=== PATIENT | female | born 1990 | race Caucasian/White ===

== ENCOUNTER 2022-08-13 16:43 | Emergency (ER) | payer BC, SELFPAY ==
[2022-08-13 17:02] VITALS: BP 140/93; PULSE 84; RESP 18; TEMP 36.4; O2SAT 100; BMI 49.8
--- NOTE | 2022-08-13 18:34 | CRLHL7_ITS ---
For Patients: As a result of the Century Cures Act, medical imaging exams and procedure reports are released immediately into your electronic medical record. You may view this report before your referring provider. If you have questions, please contact your health care provider. INDICATION: Headache TECHNIQUE: CT head without contrast. COMPARISON: None FINDINGS: CSF spaces: Within normal limits for age. Brain parenchyma: The rivera-white differentiation is normal. No sign of mass, hemorrhage, or midline shift. Skull base and calvarium: The visualized paranasal sinuses and mastoid air cells demonstrate no acute or significant findings. The visualized orbits are grossly unremarkable. No skull fractures. IMPRESSION: Unremarkable noncontrast head CT. Dictated by Floyd Phillips MD @ 08/13/2022 6:51:17 PM Please note that all CT scans at this facility use dose modulation, iterative reconstruction, and/or weight-based dosing when appropriate to reduce radiation dose to as low as reasonably achievable. Dictated by: Floyd Phillips MD @ 08/13/2022 18:51:25 (Electronically Signed)
[2022-08-13] MEDS: KETOROLAC 30 MG/ML inj IVP (19:07)
[2022-08-13] MEDS: 0.9 % SODIUM CHLORIDE 1000 ml 1,000 ML IV (19:07)
[2022-08-13] MEDS: diphenhydrAMINE 50 MG/ML inj 25 MG IVP (19:09)
[2022-08-13] MEDS: METOCLOPRAMIDE HCL 10 MG in 0.9 % SODIUM CHLORIDE 100 ml 100 ML 306 MG IVPB (19:11)
--- NOTE | 2022-08-13 20:06 | ED_ITS ---
HPI - Headache General Date Seen: 08/13/22 Chief Complaint: Headache/Migraine Stated Complaint: HEADACHE & BACK PAIN Time Seen by Provider: 08/13/22 18:20 Source: patient and family Mode of arrival: ambulatory Limitations: no limitations History of Present Illness HPI Narrative: Patient is a very nice 32-year-old female who has had a headache now for the last 3-4 days, she describes initially over the right frontal region, behind her eye but now has become more bitemporal. No fevers or chills, she describes some pain coming up from her neck into head . He is not photophobic, she is able to move all extremities independently well denies any numbness tingling weakness no history of falls or injury fevers chills or sweats, cold-like symptoms associated with this she denies any stuffy nose. She has felt slightly nauseous but has not vomited, no abdominal pain no chest pain, no shortness of breath. No rashes. Have a history of headaches but this feels a little MD elicited complaint: headache and migraine Onset (ago): day(s) Onset description: gradually Location: frontal, temporal and occipital Severity: moderate Quality & Timing: aching and throbbing Exacerbating factors: none and movement of head/neck Relieving factors: nothing Context: occurred at rest Associated symptoms: nausea Treatments prior to arrival: none, acetaminophen and ibuprofen Related Data Allergies Allergy/AdvReac Type Severity Reaction Status Date / Time Penicillins Allergy Severe hives Verified 08/13/22 17:09 Cephalosporins AdvReac Intermediate Verified 08/13/22 17:09 Review of Systems Status of ROS: Reports: 10 or more systems reviewed and unremarkable except as noted in History and below PFSH PFS Social History Smoking Status: Never smoker Do you use any of these nicotine containing products: None Second hand tobacco smoke exposure: No How often do you have a drink containing alcohol: monthly or less How many standard drinks containing alcohol do you have on a typical day: 1 or 2 How often do you have six or more drinks on one occasion: Never AUDIT-C Alcohol total score: 1 Non-prescribed substance use: marijuana (any form) Non-prescribed substance use details: rx medical service: No Exam Narrative: Exam Narrative: Patient is a very nice 32-year-old female, with bright green hair. Pupils are equal round reactive to light there is no scleral icterus redness TMs are normal oropharynx normal there is no adenopathy anterior posterior chains are neck is supple full range of motion of flexion extension lateral flexion cervical rotation are noted. She has some mild tenderness along her cervical strap muscles, and the paracervical muscles, and into her traps. There is no meningismus. Mouth opening is normal, TMs are normal, fundi appear normal, cranial nerves 3-12 are normal, chest is clear heart sounds are normal, abdomen is soft and obese there is no guarding no past splenomegaly, she was all extremities independently well with symmetrical power in upper lower extremities, no numbness and tingling, and bilaterally normal, movements fingers nose testing is normal, no cerebellar signs with normal Romberg. Her gait is assessed and normal Const: Vital Signs, click to edit/add: Vital Signs - 24 hr 08/13/22 17:02 08/13/22 20:20 Temperature 97.5 F L Pulse Rate [Pulse Oximeter] 84 79 Respiratory Rate 18 Blood Pressure [Ri ght Forearm] 140/93 H 133/84 Pulse Oximetry 100 Oxygen Delivery Me thod Room Air Documenting provider has reviewed patient's vital signs: yes Course Course Hospital Course: I reviewed with the patient that her head CT was normal, and we will give her some medications the medications did help decrease her pain. We will discharge her home at this point. She was very comfortable this we went over signs and symptoms of worsening. Vital Signs Vital signs: Initial Vital Signs Temperature 97.5 F L 08/13/22 17:02 Temperature Source Temporal Artery Scan 08/13/22 17:02 Pulse Rate 84 08/13/22 17:02 Pulse Rhythm 08/13/22 17:02 Respiratory Rate 18 08/13/22 17:02 Blood Pressure 140/93 H 08/13/22 17:02 Blood Pressure Mean 108 08/13/22 17:02 Blood Pressure Position Sitting 08/13/22 17:02 Pulse Oximetry 100 08/13/22 17:02 Oxygen Delivery Method 08/13/22 17:02 Vital Signs Temperature 97.5 F L 08/13/22 17:02 Pulse Rate 84 08/13/22 17:02 Respiratory Rate 18 08/13/22 17:02 Blood Pressure 140/93 H 08/13/22 17:02 Pulse Oximetry 100 08/13/22 17:02 Oxygen Delivery Method 08/13/22 17:02 Temperature 97.5 F L 08/13/22 17:02 Pulse Rate 79 08/13/22 20:20 Respiratory Rate 18 08/13/22 17:02 Blood Pressure 133/84 08/13/22 20:20 Pulse Oximetry 100 08/13/22 17:02 Oxygen Delivery Method 08/13/22 17:02 MDM - Headache MDM Narrative Medical decision making narrative: Life-threatening differential diagnosis include subarachnoid hemorrhage, meningitis, encephalitis, carbon monoxide poisoning, and intracerebral hemorrhage. Other differential diagnosis include but not limited to migraine, cluster headache, tension headache, TUBING MACHINE TENDER vasculitis, mass lesion, temporal arteritis, click acute closed angle glaucoma, septal and trigeminal neuralgia, sinusitis, closed head injury, and stroke Differential Diagnosis Differential diagnosis: Likely migraine, tension headache, subarachnoid hemorrhage, headache, meningitis, sinusitis and postconcussion syndrome Medical Records Attestation: I reviewed the patient's medical records. Lab Data Attestation: I reviewed the patient's lab results. Discharge Plan Discharge Clinical Impression: Tension headache, Headache Patient Disposition: Home, Self-Care Condition: Improved Instructions: Tension Headache (ED), Acute Headache (DC) Additional Instructions: Patient is it will be discharged home, she was Tylenol ibuprofen I recommend follow-up with primary care, for evaluation, and consideration of other treatments. Reassuring head CT. I would come back to be seen if you have increasing headache, nausea vomiting, visual changes, numbness tingling or any other atypical neurologic features. Follow Up/Referrals: Shiva Woo MD [Primary Care Provider] - Stand Alone Forms: [facility] Info Instructions
[2022-08-13 20:20] VITALS: BP 133/84; PULSE 79
== END 2022-08-13 20:23 | disposition home or self-care (01) ==
PROVIDERS: Emergency Provider Family Medicine; PCP Internal Medicine
DX: G44.229 Chronic tension-type headache, not intractable (principal)
CPT/HCPCS: 70450; 96361; 96374; 96375; 99284; J1200; J1885; J2765; J7030

== ENCOUNTER 2023-11-01 08:52 | Outpatient (CLI) | payer BC, SELFPAY | END 2023-11-01 08:53 | disposition home or self-care (01) | LOC: NFLDREF 11-02 10:45 | PROVIDERS: PCP Internal Medicine; Referring Provider Internal Medicine; Visit Provider Internal Medicine | DX: Z00.00 Encounter for general adult medical examination without abnormal findings (principal); I10 Essential (primary) hypertension; E55.9 Vitamin D deficiency, unspecified; E66.01 Morbid (severe) obesity due to excess calories; Z13.6 Encounter for screening for cardiovascular disorders | CPT/HCPCS: 80053; 80061; 82306 ==

== ENCOUNTER 2024-04-13 11:00 | Outpatient (RCR) | payer BC, SELFPAY | END 2024-05-23 09:44 | disposition home or self-care (01) | PROVIDERS: PCP Internal Medicine; Visit Provider Internal Medicine | DX: M79.10 Myalgia, unspecified site (principal); R32 Unspecified urinary incontinence; Z51.89 Encounter for other specified aftercare | CPT/HCPCS: 97110; 97112; 97140; 97161; 97162; 97535 ==

== ENCOUNTER 2024-05-05 14:28 | Outpatient (CLI) | payer BC, SELFPAY ==
--- OUTSIDE RECORDS SUMMARY | 2024-05-09 16:58 | XMS_ITS | Clinical Summary ---
Author Organization [facility] Address [place], [place] [address] Care Team Providers Care Stitching Machine Operator Name Role Phone Tony Duenas MD Unavailable Katheryn Mock NP Primary Care Provider Didier Kline MD Unavailable [phone] Allergies Active Allergy Reactions Criticality Noted Date Comments Banana Itching 03/05/2017 And melons-mouth and throat itch-gets upset stomach Cephalexin 04/02/2007 dizzy tunnel vision Penicillins 04/02/2007 hives Medications Medication Sig Dispensed Refills Start Date End Date Status cetirizine (ZYRTEC) 10 mg tablet Take 1 tablet by mouth once daily. 0 08/10/2011 Active Cholecalciferol, Vitamin D3, (VITAMIN D-3) 5,000 unit tabIndications:Vitam in D deficiency Take 1 tablet by mouth once daily. 0 08/23/2014 Active multivitamin (MVI) tablet Take 1 tablet by mouth once daily. 0 09/13/2015 Active azelastine 0.05% ophthalmic (OPTIVAR) 0.05 % ophthalmic solutionIndications: Other seasonal allergic rhinitis INSTILL 1 DROP IN AFFECTED EYE(S) 2 TIMES DAILY. 18 mL 3 07/07/2018 Active albuterol HFA (PROAIR HFA) 90 mcg/actuation inhalerIndications:E nvironmental allergies Inhale 2 Puffs by mouth 4 times daily if needed. 1 Inhaler 1 03/08/2019 Active acyclovir (ZOVIRAX) 400 mg tabletIndications:Ge nital herpes simplex, unspecified site Take 1 tab by mouth three times per day for 5 days. (recurrent herpes) 15 tablet 03/08/2019 Active diphenhydrAMINE (BENADRYL) 25 mg capsuleIndications:I nsomnia, unspecified type Take 1 capsule by mouth at bedtime if needed. 1 capsule 03/16/2019 Active buPROPion (WELLBUTRIN SR) 200 mg Sustained-Release tabletIndications:Dy sthymic disorder Take 1 tablet by mouth once daily. 90 tablet 3 06/19/2019 Active lisinopril (PRINIVIL; ZESTRIL) 20 mg tabletIndications:Hy pertension, unspecified type Take 1 tablet by mouth once daily. 90 tablet 3 06/19/2019 Active montelukast (SINGULAIR) 10 mg tabletIndications:En vironmental allergies Take 1 tablet by mouth at bedtime. 90 tablet 3 06/19/2019 Active fluticasone (50 mcg per actuation) nasal solution (FLONASE)Indications :Other seasonal allergic rhinitis Inhale 1 [place] into both nostrils 2 times daily. 3 Bottle 3 06/19/2019 Active cyclobenzaprine (FLEXERIL) 10 mg tabletIndications:Fi bromyalgia Take 1 tablet by mouth at bedtime. 30 tablet 3 06/21/2019 Active diclofenac (VOLTAREN XR) 100 mg extended release tabletIndications:Pa in,Tendonitis of wrist, right Take 1 tablet by mouth once daily with a meal. 30 tablet 06/22/2019 Active metoprolol tartrate (LOPRESSOR) 25 mg tablet Take 25 mg by mouth two times daily. 03/15/2023 Active benzonatate (TESSALON) 200 mg capsuleIndications:A cute cough Take 1 Capsule (200 mg) by mouth 3 times daily if needed for Cough. 21 Capsule 06/09/2023 Active Active Problems Problem Noted Date Diagnosed Date S/P excision of ganglion cyst 08/22/2019 Pain 07/26/2019 Flexor carpi radialis tenosynovitis 07/07/2019 Mass of joint of right wrist 07/07/2019 Tendonitis of wrist, right 07/07/2019 S/P section 05/22/2015 Vitamin D deficiency 06/05/2014 Family history of cardiac arrhythmia 05/18/2013 Environmental allergies 05/02/2013 Overview: Tobacco smoke HTN (hypertension) 02/16/2012 Genital herpes, unspecified 01/12/2012 Major depression in partial remission 04/05/2009 Dysthymic disorder 01/25/2009 Morbid obesity 07/11/2008 Resolved Problems Problem Noted Date Diagnosed Date Resolved Date Yeast dermatitis 06/07/2015 03/08/2019 Infection of sectio n or perineal wound 06/04/2015 03/08/2019 wound disruption 06/04/2015 C. difficile diarrhea 06/04/20152018 Wound cellulitis after surgery 05/31/2015 03/08/2019 31-32 completed weeks of gestation(765.26) 05/22/2015 03/08/2019 distress affecting man agement of mother, delivered 05/22/2015 03/08/2019 Anhydramnios, delivered, cur rent hospitalization 05/22/2015 03/08/2019 Preexisting hypertension com plicating , with delivery, current hospitalization 05/22/2015 03/08/2019 Morbid obesity with BMI of 50.0-59.9, adult 05/20/2015 03/16/2019 distress affecting management of mother 05/20/20 15 05/22/2015 Gestational diabetes 05/20/2015 019 Anhydramnios in third trimester 05/20/2015 05/22/2015 Gestational diabetes 05/06/2015 015 complicated by obesity 12/14/2014 05/22/2015 Hypertension complicating 12/14/2014 05/22/2015 Supervision of normal first 11/01/2014 03/08/2019 Overview: 1. Chronic hypertension - on methyldopa 2. Depression - on paxil early in ; switched to fluoxetine at 10 weeks 3. Genital herpes - no active lesions - will need Valtrex at 36 weeks 4. Morbid obesity - will need OB consult at 32 weeks 5. Gestational diabetes - diagnosed at 25 weeks, White's Class A1, diet controlled Allergic rhinitis, cause unspecified 02/09/2012 05/22/2015 Rule out ADD (Attention Deficit Disorder) 02/15/2009 03/16/2019 Rule out Major Depression, Recurrent, Mild 02/15/2009 04/05/2009 Immunizations Name Administration Dates Next Due DTP 10/10/1990,1989,1989 ,1989 DTaP 07/01/1994 HIB PRP-OMP (PedvaxHIB) 10/10/1990 Hepatitis B (Peds) 04/19/2001,11/18/2000, 000 Human Papilloma Virus Vaccine 10/24/2012, 012,01/14/2012 Influenza, IIV3 (Age >=3 years) 10/16/2013,01/06,10/12/2005,10/13/2003 Influenza, IIV4 09/13/2015,08/23/2014 MMR 11/18/2000,10/10/1990 Oral Polio Vaccine 07/01/1994,10/10/1990, 989,1989 Td (Age >=7 Years) 10/19/2000 Tdap 05/06/2015,12/24/2010 Family History Medical History Relation Name Comments Good Health Father Hypertension Father Other Father sleep apnea Good Health Mother Hypertension Mother Lupus Other maternal first cousin Other Paternal Grandfather sleep a pnea Stroke Paternal Grandfather Diabetes Paternal Grandmother Stroke Paternal Grandmother Other Paternal Uncle 3, sleep apne a Relation Name Status Comments Father Alive Mother Alive Other Paternal Grandfather Paternal Grandmother Paternal Uncle Sister (Age 19) long QT s yndrome Social History Tobacco Use Types Packs/Day Years Used Date Smoking Tobacco: Never Smokeless Tobacco: Never Tobacco Cessation:Counseling Given: Yes Alcohol Use Standard Drinks/Week Comments Yes 0 (1 standard drink = 0.6 oz pur e alcohol) rarely PHQ-2 Answer Date Recorded PHQ-2 Score 0 08/03/2019 Sex and Gender Information Value Date Recorded Sex Assigned at Not on file Gender Identity Not on file Sexual Orientation Not on file Obstetrics History Para Term AB IAB SAB Ectopic Multiple Livin g Live Births 1 1 0 1 0 0 0 0 0 1 1 Date Outcome GA Total Labor Labor/2nd/3rd Weight Sex Type Anes PTL Dina A1 A5 Name Clin 2014 32w 2d 1.01 kg (2 lb 3.6 oz) F C-Sec tion Spinal Livin g 1 5 AUTUMN gibson, Dr Lainez [facility] Delivery Location:[facility] Comments:nonreassuring tracing, absent variability, stat C/S Last Filed Vital Signs Vital Sign Reading Time Taken Comments Blood Pressure 181/88 06/09/2023 3:10 PM CDT Pulse 91 06/09/2023 4:48 PM CDT Temperature 36.8 ??C (98.3 ??F) 06/09/2023 3:10 PM CD T Respiratory Rate 20 06/09/2023 3:10 PM CDT Oxygen Saturation 99% 06/09/2023 4:48 PM CDT Inhaled Oxygen Concentration - - Weight 138.8 kg (306 lb) 06/09/2023 3:10 PM CDT Height 160 cm (5' 2.99) 08/22/2019 11:47 AM CDT Body Mass Index 54.22 08/22/2019 11:47 AM CDT Plan of Treatment Health Maintenance Due Date Last Done Comments Hepatitis C screening for age 18-79 2007 Depression screening for age 12+ 08/04/2020 08/04/2019, 08/03/2019, 07/26/2019, Additional history exists BMI (ht and wt on same day) for age 18+ 08/22/2020 08/22/2019, 08/03/2019, 07/26/2019, Additional history exists Pap test for age 21-65 06/19/2022 9, 04/21/2016, 05/15/2014, Additional history exists COVID-19 vaccine series ( season) 2023 10/21/2021, 03/18/2021, 02/18/2021 Influenza for age 9-49 07/23/2024 5, 08/23/2014, 10/16/2013, Additional history exists Tetanus booster 05/06/2025 05/06/2015, 12/2010, 10/19/2000 HIV for age 15-65 Completed 11/01/2014 Tdap Completed 05/06/2015, 12/24/2010 Pneumococcal series for age 6-64 Aged Out No longer eligible based on patient's age to complete this topic Procedures Procedure Name Priority Date/Time Associated Diagnosis Comments JACK FRAME TENDER THIN PREP PAP SCREEN IMAGED Routine 06/19/2019 1:03 PM CDT Cervical cancer screening ANTI HIV 1/2 Routine 11/01/2014 6:08 PM ADMINISTRATIVE COORDINATOR Supervision of normal first from Last 3 Months or Most Recently Relevant to Health Maintenance Results * JACK FRAME TENDER THIN PREP PAP SCREEN IMAGED (06/19/2019 1:03 PM CDT) Case Report Gynecologic Cytology Report ? Case: [id number] ? Authorizing Provider: ??Katheryn Mock, DAVID ?Collected: ? 06/19/2019 1303 ? Ordering Location: ? [facility] ?Received: ?06/19/2019 1303 ? Clinic ? First Screen: ?Destini Macias ? Rescreen: ?Umm Sosa ? Specimen: ?JACK FRAME TENDER ThinPrep Vial Screening, Cervical ? 2019 10:28 AM CDT [facility] INTERPRETATION/ RESULT NEGATIVE FOR INTRAEPITHELIAL LESION OR MALIGNANCY (NIL) (none) 2019 10:28 AM [facility] IMEN ADEQUACY Satisfactory for evaluation No endocervical component seen 2019 10:28 AM T [facility] HPV REQUEST HPV if ASCUS 2019 10:28 AM [facility] Date of LMP IUD 2019 10:28 AM [facility] Last Pap Date 04/21/16 2019 10:28 AM T [facility] Last Pap Result NIL 9 10:28 AM CDT [facility] Abnormal Pap or Caribou Bx in last 5 years No 2019 10:28 AM T [facility] Menstrual Status Irregular Periods 2019 10:28 AM T [facility] Caribou Bx Done Today No 2019 10:28 AM [facility] Additional Information None given 2019 10:28 AM [facility] Automated Review Successful 2019 10:28 AM [facility] Comment:Specimen processed s uccessfully by automated dressed poultry grader device, ThinPrep Imaging System, [employer] Note The pap test is a screening technique, not a diagnostic procedure. ??It is used primarily to screen for squamous cancers and precursor lesions. ??Published studies have shown that it is subject to both false negative and false positive results. ??The pap test should not be used as the sole means to diagnose or exclude pre-malignant and malignant lesions. Cytology is screened and interpreted at [facility] - [address], [place] [address] and [facility] - [address] [place] [address]; [place] [address] and [facility] - [address]; [place] [address] and [facility] [address]; [place] [address] 2019 10:28 AM CDT [facility] Other (Cervical) Non-Blood / Unknown 06/19/2019 1:03 PM CDT 06/19/2019 1:03 PM CDT Katheryn Mock VEHICLE MODIFICATION TECHNICIAN PATHOLOGY/CYTOLOGY Performing Organization Address City/[facility]/ZIP Co de Phone Number [facility] [address] [place] [address], * ANTI HIV 1/2 (11/01/2014 6:08 PM ADMINISTRATIVE COORDINATOR) HIV-1/HIV-2 ANTIBODY Non-Reacti ve Non-Reacti ve 11/02/2014 1:53 PM ADMINISTRATIVE COORDINATOR [facility] Blood specimen (specimen) BLOOD SPECIMEN / Unknown Venipuncture / Unknown 11/01/2014 6:08 PM ADMINISTRATIVE COORDINATOR 11/01/2014 6:08 PM ADMINISTRATIVE COORDINATOR Narrative [facility] - 11/02/2014 1:53 PM ADMINISTRATIVE COORDINATOR HIV-1 p24 and HIV-1/HIV-2 Ab not detected Selena Sanz VEHICLE MODIFICATION TECHNICIAN [facility] [address] [place] [address], from Last 3 Months or Most Recently Relevant to Health Maintenance Additional Health Concerns Infection Onset Date Last Indicated C diff History Comment:+C diff test 06/04/2015. Enteric Precautions not required on subsequent admissions provided: 1) >3 weeks since positive D diff test; 2) diarrhea resolved; and 3) patient has completed CDI antibiotics. C diff testing not required on subsequent admissions unless patient is presenting with C diff symptoms. 08/07/2019 08/07/2019 Advance Directives * Full Code (Latest Code Status on File) Date Activated Date Inactivated Comments 08/07/2019 7:29 AM 08/07/2019 2:22 PM Question Answer Comments Code Status Discussion: Discussed * Full Code Date Activated Date Inactivated Comments 05/20/2015 3:25 PM 05/23/2015 1:20 PM * Full Code Date Activated Date Inactivated Comments 05/20/2015 2:02 PM 05/20/2015 3:25 PM * Full Code Date Activated Date Inactivated Comments 05/20/2015 1:54 PM 05/20/2015 2:02 PM Care Teams Stitching Machine Operator Relationship Specialty Start Date End Date Katheryn Mock NP [address] [facility] [place] [address] PCP - General Nurse Practitioner 03/16/19 Tony Duenas MD [address] [place] [address] Family Practice 05/21/16 Didier Kline MD [address] [facility] [address] [place] [address] Rheumatology Rheumatology 06/21/19
== END 2024-05-05 14:29 | disposition home or self-care (01) ==
LOC: NFLDREF 05-09 16:56
PROVIDERS: PCP Internal Medicine; Referring Provider Internal Medicine
DX: R19.7 Diarrhea, unspecified (principal)
CPT/HCPCS: 87493; 87505

== ENCOUNTER 2025-01-26 08:16 | Outpatient (CLI) | payer BC, SELFPAY | END 2025-01-26 08:17 | disposition home or self-care (01) | LOC: NFLDREF 01-28 16:25 | PROVIDERS: PCP Internal Medicine; Referring Provider Internal Medicine; Visit Provider Internal Medicine | DX: E55.9 Vitamin D deficiency, unspecified (principal); I10 Essential (primary) hypertension; E66.01 Morbid (severe) obesity due to excess calories; Z13.6 Encounter for screening for cardiovascular disorders | CPT/HCPCS: 80053; 80061; 82306 ==